=== PATIENT | female | born 1965 | race African-American/Black ===

== ENCOUNTER 2021-03-11 13:43 | Emergency (ER) | payer BC ==
[~2021-03-11] VITALS: Ht 165.1 cm; Wt 56.7 kg
[2021-03-11 14:48] VITALS: BP_SYST 138
[2021-03-11 15:03] LABS: BILIRUBIN,URINE NEGATIVE (NEGATIVE); BLOOD, URINE NEGATIVE (NEGATIVE); CLARITY/URINE CLEAR (CLEAR); COLOR,URINE YELLOW (YELLOW); GLUCOSE,URINE NEGATIVE (NEGATIVE); KETONES,URINE NEGATIVE (NEGATIVE); NITRITE, URINE NEGATIVE (NEGATIVE); PROTEIN URINE NEGATIVE (NEGATIVE); UROBILINOGEN,URINE 0.2 (0.2-1.0)
[2021-03-11 15:11] LABS: LEUKOCYTE ESTERASE ,URINE TRACE (NEGATIVE)
[2021-03-11 15:12] LABS: BACTERIA,URINE FEW /HPF (None Seen); MUCUS,URINE None Seen /LPF (None Seen); RBC,URINE NONE SEEN /HPF (0-3)
[2021-03-11 16:28] LABS: BASOPHILS % (AUTO) 0.3 % (0.0-2.0); EOSINOPHILS % (AUTO) 0.2 % (0.0-4.0); HEMATOCRIT 39.2 % (36-48); HEMOGLOBIN 13.1 g/dL (12.0-16.0); LYMPHOCYTES # (AUTO) 2.4 K/uL (1.0-5.5); LYMPHOCYTES % (AUTO) 47.3 % (20.5-51.5); MEAN CORPUSCULAR HEMOGLOBIN 32 pg (27-31); MEAN CORPUSCULAR HGB CONC 34 % (32-36); MEAN CORPUSCULAR VOLUME 95 fL (79.0-98.0); MONOCYTES # (AUTO) 0.4 K/uL (0.0-1.0); MONOCYTES % (AUTO) 7.9 % (1.7-9.3); NEUTROPHILS # (AUTO) 2.3 K/uL (1.8-7.7); NEUTROPHILS % (AUTO) 44.3 % (40.0-70.0); PLATELET COUNT (AUTO) 197 K/uL (130-430); RED BLOOD CELL COUNT(AUTO) 4.12 MIL/uL (4.2-6.2); RED CELL DISTRIBUTION WIDTH 12.1 % (9.0-15.0); WHITE BLOOD COUNT (AUTO) 5.1 K/uL (4.8-10.8)
[2021-03-11 16:41] LABS: ANION GAP 7 (5-15); CALCIUM 9.5 mg/dL (8.4-11.0); CHLORIDE 104 mmol/L (98-107); CREATININE 0.89 mg/dL (0.55-1.30); GFR AFRICAN AMERICAN 85 mL/min (>90); GLUCOSE 75 mg/dL (70-99); SODIUM SERUM 139 mmol/L (136-145); UREA NITROGEN, BLOOD 13 mg/dL (8-21)
[2021-03-11 16:45] LABS: INR 0.9 (0.8-1.2); PROTHROMBIN TIME 9.6 SECS (9.5-12.5)
[2021-03-11 16:53] LABS: TOTAL BILIRUBIN 1.2 mg/dL (0.0-1.0)
[2021-03-11 16:54] LABS: ALANINE AMINOTRANSFERASE 219 U/L (12-78); ALBUMIN 4.1 g/dL (3.4-4.8); ASPARTATE AMINOTRANSFERASE 145 U/L (10-37)
[2021-03-11 16:56] LABS: AMYLASE 66 U/L (0-100); C-REACTIVE PROTEIN QUANT < 0.2 mg/dL (0-0.5); LIPASE 117 U/L (73-393)
[2021-03-11] MEDS ORDERED: MAG HYDROX/AL HYDROX/SIMETH 30 ML, LIDOCAINE VISCOUS 2% 15ML (PO) 15 ML, DICYCLOMINE HC... PO ONE ×3 (17:30)
[2021-03-11] MEDS ORDERED: ONDA-8 TL (18:20)
[2021-03-11] MEDS ORDERED: PRO40 PO (18:20)
[2021-03-11] MEDS ORDERED: DICY10CA13 PO (18:22)
[2021-03-11 18:39] VITALS: BP_SYST 122
== END 2021-03-11 18:39 | disposition home or self-care (01) ==
LOC: SED 13:43
DX: K27.3 Acute peptic ulcer, site unspecified, without hemorrhage or perforation (principal); K21.9 Gastro-esophageal reflux disease without esophagitis; Z90.49 Acquired absence of other specified parts of digestive tract; Z79.899 Other long term (current) drug therapy
CPT/HCPCS: 36415; 74176; 76376; 80053; 81000; 81025; 82150; 83605; 83690; 84703; 85025; 85610; 85730; 86140; 99284; J2001

== ENCOUNTER 2021-05-09 23:23 | Inpatient (IN) | payer BC, SELFPAY ==
[~2021-05-09] VITALS: Ht 165.1 cm; Wt 59.0 kg
[~2021-05-09 23:23] MED LIST: DICY10CA13 PO; ONDA-8 TL; PRO40 PO
[2021-05-09 23:34] VITALS: BP_SYST 102
[2021-05-09] MEDS ORDERED: KETOROLAC TROMETHAMINE 30 MG VIAL IM ONE (23:45)
[2021-05-10 00:26] LABS: CREATININE 1.07 mg/dL (0.55-1.30); POTASSIUM 3.8 mmol/L (3.5-5.1)
[2021-05-10 00:29] LABS: HEMOGLOBIN 10.7 g/dL (12.0-16.0); MEAN CORPUSCULAR HGB CONC 33 % (32-36); MONOCYTES # (AUTO) 0.8 K/uL (0.0-1.0); RED BLOOD CELL COUNT(AUTO) 3.38 MIL/uL (4.2-6.2)
[2021-05-10 00:33] LABS: BASOPHILS % (AUTO) 0.3 % (0.0-2.0); EOSINOPHILS % (AUTO) 0.6 % (0.0-4.0); HEMATOCRIT 32.6 % (36-48); LYMPHOCYTES # (AUTO) 2.3 K/uL (1.0-5.5); LYMPHOCYTES % (AUTO) 33.2 % (20.5-51.5); MEAN CORPUSCULAR HEMOGLOBIN 32 pg (27-31); MEAN CORPUSCULAR VOLUME 96 fL (79.0-98.0); NEUTROPHILS # (AUTO) 3.8 K/uL (1.8-7.7); NEUTROPHILS % (AUTO) 53.9 % (40.0-70.0); PLATELET COUNT (AUTO) 226 K/uL (130-430); RED CELL DISTRIBUTION WIDTH 13.3 % (9.0-15.0)
[2021-05-10 00:41] LABS: ALBUMIN 3.5 g/dL (3.4-4.8); TOTAL BILIRUBIN 0.8 mg/dL (0.0-1.0)
[2021-05-10 01:14] LABS: CKMB RELATIVE INDEX 2.2 (0.0-2.9); CREATINE KINASE MB 201.2 ng/mL (0-3.6)
[2021-05-10] MEDS ORDERED: NACL 0.9% 1,000 ML IV ONE (01:30)
[2021-05-10] MEDS ORDERED: PRO40 PO (01:49)
[2021-05-10] MEDS ORDERED: LOSA100T3 PO (01:49)
[2021-05-10] MEDS ORDERED: LOVA20TA2 PO (01:49)
[2021-05-10] MEDS ORDERED: PRO10 PO (01:50)
[2021-05-10] MEDS ORDERED: TRAZ-250 PO (01:51)
[2021-05-10 02:49] LABS: BILIRUBIN,URINE NEGATIVE (NEGATIVE); CLARITY/URINE CLEAR (CLEAR); COLOR,URINE YELLOW (YELLOW); GLUCOSE,URINE NEGATIVE (NEGATIVE); KETONES,URINE NEGATIVE (NEGATIVE); LEUKOCYTE ESTERASE ,URINE 1+ (NEGATIVE); NITRITE, URINE NEGATIVE (NEGATIVE); PH,URINE 6.5 (5.0-8.0); PROTEIN URINE NEGATIVE (NEGATIVE); UROBILINOGEN,URINE 0.2 (0.2-1.0)
[2021-05-10 03:22] LABS: BLOOD, URINE TRACE (NEGATIVE)
[2021-05-10 03:24] LABS: BACTERIA,URINE FEW /HPF (None Seen)
[2021-05-10] MEDS: NACL 0.9% 1,000 ML IV SCH ×3 (03:59→17:34)
[2021-05-10] MEDS ORDERED: cefTRIAXone 1 GM IVPB PREMIX 50 ML IV ONE (05:00)
[2021-05-10] MEDS ORDERED: AZITHROMYCIN 250 MG TABLET PO ONE (05:00)
[2021-05-10 08:06] VITALS: BP_SYST 142
[2021-05-10 08:25] VITALS: BP_SYST 142
[2021-05-10 12:17] VITALS: BP_SYST 143
[2021-05-10 15:08] LABS: BARBITURATE, URINE NEGATIVE (NEG <=200); BENZODIAZEPINE, URINE NEGATIVE (NEG <=150); CANNABINOID, URINE NEGATIVE (NEG <=50); COCAINE, URINE NEGATIVE (NEG <=150); METHAMPHETAMINES SCREEN,URINE NEGATIVE (NEG <=500); OPIATE, URINE NEGATIVE (NEG <=100); PHENCYCLIDINE SCREEN,URINE NEGATIVE (NEG <=25); UR TRICYCLIC ANTIDEPRESSANTS NEGATIVE (NEG <=300); URINE AMPHETAMINE NEGATIVE (NEG <=500); URINE METHADONE NEGATIVE (NEG <=200); URINE OXYCODONE SCREEN NEGATIVE (NEG <=100); URINE PROPOXYPHENE SCREEN NEGATIVE (NEG <=300)
[2021-05-10 16:50] VITALS: BP_SYST 134
[2021-05-10 20:00] VITALS: BP_SYST 135
[2021-05-11] MEDS: NACL 0.9% 1,000 ML IV SCH ×3 (00:02→13:05)
[2021-05-11 00:07] VITALS: BP_SYST 105
[2021-05-11 06:41] LABS: BASOPHILS % (AUTO) 0.2 % (0.0-2.0); EOSINOPHILS % (AUTO) 0.8 % (0.0-4.0); HEMATOCRIT 27.1 % (36-48); HEMOGLOBIN 8.9 g/dL (12.0-16.0); LYMPHOCYTES # (AUTO) 2.4 K/uL (1.0-5.5); LYMPHOCYTES % (AUTO) 52.3 % (20.5-51.5); MEAN CORPUSCULAR HEMOGLOBIN 32 pg (27-31); MEAN CORPUSCULAR HGB CONC 33 % (32-36); MEAN CORPUSCULAR VOLUME 97 fL (79.0-98.0); MONOCYTES # (AUTO) 0.5 K/uL (0.0-1.0); MONOCYTES % (AUTO) 10.2 % (1.7-9.3); NEUTROPHILS # (AUTO) 1.7 K/uL (1.8-7.7); NEUTROPHILS % (AUTO) 36.5 % (40.0-70.0); PLATELET COUNT (AUTO) 176 K/uL (130-430); RED BLOOD CELL COUNT(AUTO) 2.79 MIL/uL (4.2-6.2); RED CELL DISTRIBUTION WIDTH 13.9 % (9.0-15.0); WHITE BLOOD COUNT (AUTO) 4.5 K/uL (4.8-10.8)
[2021-05-11 07:16] LABS: ALBUMIN 2.6 g/dL (3.4-4.8); CALCIUM 7.7 mg/dL (8.4-11.0); CREATININE 0.69 mg/dL (0.55-1.30); PHOSPHORUS 3.2 mg/dL (2.7-4.5); POTASSIUM 3.9 mmol/L (3.5-5.1); TOTAL BILIRUBIN 0.4 mg/dL (0.0-1.0)
[2021-05-11 08:15] LABS: CKMB RELATIVE INDEX 1.8 (0.0-2.9); CREATINE KINASE MB 82.1 ng/mL (0-3.6)
[2021-05-11 12:00] VITALS: BP_SYST 144
[2021-05-11 16:43] VITALS: BP_SYST 116
[2021-05-11 19:19] VITALS: BP_SYST 144
== END 2021-05-11 22:00 | disposition home or self-care (01) | DRG 558 ==
LOC: SED 23:23 → SMU 05-10 03:40
PROVIDERS: ADMIT Internal Medicine Hospice and Palliative Medicine; ATTEND Internal Medicine Hospice and Palliative Medicine
DX: M62.82 Rhabdomyolysis (principal); N39.0 Urinary tract infection, site not specified; K21.9 Gastro-esophageal reflux disease without esophagitis; I10 Essential (primary) hypertension; Z20.822 Contact with and (suspected) exposure to COVID-19; E78.5 Hyperlipidemia, unspecified; Z79.899 Other long term (current) drug therapy; Z87.898 Personal history of other specified conditions; Z87.891 Personal history of nicotine dependence
CPT/HCPCS: 36415; 76700-TC; 80053; 80307; 81000; 82550; 82553; 83735; 84100; 85025; 87040-TC; 87086; 96361; 96365; 96372; 99291; J0696; J1885

== ENCOUNTER 2021-12-12 19:55 | Emergency (ER) | payer BC, SELFPAY ==
[~2021-12-12] VITALS: Ht 167.6 cm; Wt 61.2 kg
[~2021-12-12 19:55] MED LIST changes: +LOSA100T3 PO; +PRO10 PO; +TRAZ-250 PO
[2021-12-12 20:00] VITALS: BP_SYST 144
--- NOTE | 2021-12-12 20:00 | NUR ---
Patient triaged and placed in waiting room. VSS and patient appears in no acute distress at this time., awaiting available bed, and MD notified of need for MSE.
[2021-12-12 22:27] LABS: BASOPHILS % (AUTO) 0.4 % (0.0-2.0); EOSINOPHILS % (AUTO) 0.9 % (0.0-4.0); HEMATOCRIT 28.7 % (36-48); HEMOGLOBIN 9.3 g/dL (12.0-16.0); LYMPHOCYTES # (AUTO) 2.6 K/uL (1.0-5.5); LYMPHOCYTES % (AUTO) 45.2 % (20.5-51.5); MEAN CORPUSCULAR HEMOGLOBIN 31 pg (27-31); MEAN CORPUSCULAR HGB CONC 32 % (32-36); MEAN CORPUSCULAR VOLUME 97 fL (79.0-98.0); MONOCYTES # (AUTO) 0.5 K/uL (0.0-1.0); MONOCYTES % (AUTO) 9.1 % (1.7-9.3); NEUTROPHILS # (AUTO) 2.5 K/uL (1.8-7.7); NEUTROPHILS % (AUTO) 44.4 % (40.0-70.0); PLATELET COUNT (AUTO) 209 K/uL (130-430); RED BLOOD CELL COUNT(AUTO) 2.95 MIL/uL (4.2-6.2); RED CELL DISTRIBUTION WIDTH 12.8 % (9.0-15.0); WHITE BLOOD COUNT (AUTO) 5.7 K/uL (4.8-10.8)
[2021-12-12 22:36] LABS: CALCIUM 8.6 mg/dL (8.4-11.0); CREATININE 0.64 mg/dL (0.55-1.30); POTASSIUM 3.6 mmol/L (3.5-5.1)
[2021-12-12 22:48] LABS: ALBUMIN 3.7 g/dL (3.4-4.8); TOTAL BILIRUBIN 1.1 mg/dL (0.0-1.0)
--- NOTE | 2021-12-12 23:37 | NUR ---
ER examining patient in the triage.
--- NOTE | 2021-12-13 00:07 | NUR ---
Patient given written and verbal discharge instructions and verbalizes understanding. ER MD discussed with patient the results and treatment provided. Patient in stable condition. ID arm band removed. no Rx of given. Patient educated on pain management and to follow up with PMD. Pain Scale 0/10. Opportunity for questions provided and answered. Medication side effect fact sheet provided.
[2021-12-13 00:09] VITALS: BP_SYST 151
== END 2021-12-13 00:09 | disposition home or self-care (01) ==
LOC: SED 19:55
DX: I10 Essential (primary) hypertension (principal); K21.9 Gastro-esophageal reflux disease without esophagitis; Z79.899 Other long term (current) drug therapy
CPT/HCPCS: 36415; 71045; 80053; 84484; 85025; 93005; 99285

== ENCOUNTER 2023-09-29 12:05 | Emergency (ER) | payer SELFPAY ==
[~2023-09-29] VITALS: Ht 165.1 cm; Wt 72.6 kg
[~2023-09-29 12:05] MED LIST changes: +DICY-14 PO; -DICY10CA13 PO; +LOSA-415 PO; -LOSA100T3 PO
[2023-09-29 12:27] VITALS: BP_SYST 110; PULSE 86; RESP 18; TEMP 97.5; O2SAT 96
[2023-09-29 13:02] LABS: BASOPHILS % (AUTO) 0.8 % (0.0-2.0); EOSINOPHILS # (AUTO) 0.1 K/uL (0.0-0.4); EOSINOPHILS % (AUTO) 1.7 % (0.0-4.0); HEMATOCRIT 34.8 % (36-48); HEMOGLOBIN 10.9 g/dL (12.0-16.0); LYMPHOCYTES # (AUTO) 2.4 K/uL (1.0-5.5); LYMPHOCYTES % (AUTO) 46.9 % (20.5-51.5); MEAN CORPUSCULAR HEMOGLOBIN 29 pg (27-31); MEAN CORPUSCULAR HGB CONC 31 % (32-36); MEAN CORPUSCULAR VOLUME 94 fL (79.0-98.0); MONOCYTES # (AUTO) 0.5 K/uL (0.0-1.0); MONOCYTES % (AUTO) 10.4 % (1.7-9.3); NEUTROPHILS % (AUTO) 40.2 % (40.0-70.0); PLATELET COUNT (AUTO) 234 K/uL (130-430); RED CELL DISTRIBUTION WIDTH 13.2 % (9.0-15.0); WHITE BLOOD COUNT (AUTO) 5.1 K/uL (4.8-10.8)
[2023-09-29 13:17] LABS: CALCIUM 9.3 mg/dL (8.4-11.0); CREATININE 1.03 mg/dL (0.55-1.30); POTASSIUM 4.1 mmol/L (3.5-5.1)
[2023-09-29 13:21] LABS: ALBUMIN 3.4 g/dL (3.4-4.8); TOTAL BILIRUBIN 0.6 mg/dL (0.0-1.0); TOTAL PROTEIN, SERUM 7.7 g/dL (6.4-8.3)
[2023-09-29 14:16] VITALS: O2SAT 100
[2023-09-29] MEDS ORDERED: PRED20TA PO (15:23)
[2023-09-29 16:04] VITALS: BP_SYST 128; PULSE 65; RESP 16
[2023-09-29 17:07] LABS: BILIRUBIN,URINE NEGATIVE (NEGATIVE); BLOOD, URINE NEGATIVE (NEGATIVE); COLOR,URINE YELLOW (YELLOW); GLUCOSE,URINE NEGATIVE (NEGATIVE); KETONES,URINE NEGATIVE (NEGATIVE); LEUKOCYTE ESTERASE ,URINE NEGATIVE (NEGATIVE); NITRITE, URINE NEGATIVE (NEGATIVE); PH,URINE 6.5 (5.0-8.0); PROTEIN URINE NEGATIVE (NEGATIVE); UROBILINOGEN,URINE 0.2 (0.2-1.0)
[2023-09-29 17:34] LABS: CLARITY/URINE SLIGHTLY HAZY (CLEAR)
== END 2023-09-29 15:41 | disposition home or self-care (01) ==
LOC: SED 12:05
DX: J40 Bronchitis, not specified as acute or chronic (principal); R06.02 Shortness of breath; M25.511 Pain in right shoulder; K21.9 Gastro-esophageal reflux disease without esophagitis; I10 Essential (primary) hypertension; Z79.899 Other long term (current) drug therapy
CPT/HCPCS: 36415; 71046-TC; 71270-TC; 76376; 80053; 81001; 81003; 85025; 85379; 99284